=== PATIENT | female | born 1990 | race Caucasian/White ===

== ENCOUNTER 2016-10-30 22:56 | Emergency (ER) | payer OTHER ==
[~2016-10-30] VITALS: Ht 170.2 cm; Wt 78.0 kg
[~2016-10-30 22:56] MED LIST: COLA100C3 PO; FOLI1TAB2 PO; KEPP1000 PO; LAMO10TA PO; MOTR200T44 PO; PERC5TAB6 PO; PREN1TAB11 PO; ZOFR20TA PO
[2016-10-31] MEDS ORDERED: DIPH25CA PO (01:45)
[2016-10-31 02:13] VITALS: BP 117/67
== END 2016-10-31 02:14 | disposition home or self-care (01) ==
LOC: M ED 23:46
DX: G47.00 Insomnia, unspecified (principal); G40.909 Epilepsy, unspecified, not intractable, without status epilepticus; Z79.899 Other long term (current) drug therapy; Z3A.38 38 weeks gestation of pregnancy

== ENCOUNTER 2016-11-08 08:12 | Inpatient (IN) | payer OTHER ==
[~2016-11-08] VITALS: Ht 170.2 cm; Wt 78.0 kg
[2016-11-08] VITALS (33 sets, daily range): BP systolic 90–130; BP diastolic 46–76
[~2016-11-08 08:12] MED LIST changes: +DIPH25CA PO
[2016-11-08] MEDS ORDERED: LR 1,000 ML IV SCH (10:36)
[2016-11-08] MEDS ORDERED: OXYTOCIN DRIP 30 UNITS in APPROPRIATE DILUENT 1 EA IV SCH (10:45)
[2016-11-08 12:11] LABS: MEAN CORPUSCULAR HEMOGLOBIN 32.2 pg (27.0-33.0); MEAN CORPUSCULAR HGB CONC 34.7 g/dl (32.0-36.5); RED CELL DISTRIBUTION WIDTH 12.8 % (11.5-14.5); WHITE BLOOD COUNT 12.6 K/mm3 (4.0-10.0)
[2016-11-08] MEDS ORDERED: FENTANYL 2MCG/ML ROPIVACAINE 0.2% IN 0.9% NACL 200ML IVBAG As Ordered ONE (12:57)
[2016-11-08] MEDS ORDERED: NALOXONE INJ 0.4 MG/1 ML VIAL (J2310) IV PRN (14:00)
[2016-11-08] MEDS ORDERED: diphenhydrAMINE INJ 50MG/ML VIAL (J1200) IV PRN (14:00)
[2016-11-08] MEDS ORDERED: ePHEDrine SULFATE 25 MG/5 ML(5MG/ML) SYRINGE IV PRN (14:00)
[2016-11-08] MEDS ORDERED: EPIDURAL COMMENT XX SCH (14:00)
[2016-11-08] MEDS ORDERED: FENTANYL/ROPIVACAINE/NACL BAG 200 ML EPIDURAL SCH (14:00)
[2016-11-08] MEDS ORDERED: EPIDURAL/PCA KEYS XX PRN (14:00)
[2016-11-08] MEDS ORDERED: REFRIGERATOR IV KEYS XX PRN (14:00)
[2016-11-08] MEDS ORDERED: LACTATED RINGER'S 1000 ML IV PRN (14:00)
[2016-11-08] MEDS ORDERED: levETIRAcetam 250MG TABLET (KEPPRA) PO ONE (19:30)
[2016-11-08] MEDS ORDERED: lamoTRIgine 100MG TAB PO ONE (19:30)
[2016-11-08] MEDS: ONDANSETRON 4MG/2ML VIAL (J2405) IV PRN (22:03)
[2016-11-09] VITALS (14 sets, daily range): BP systolic 89–135; BP diastolic 46–69
[2016-11-09] MEDS ORDERED: lamoTRIgine 100MG TAB PO ONE (06:45)
[2016-11-09] MEDS ORDERED: levETIRAcetam 250MG TABLET (KEPPRA) PO ONE (06:45)
[2016-11-09] MEDS: ONDANSETRON 4MG/2ML VIAL (J2405) IV PRN (08:08)
[2016-11-09] MEDS ORDERED: levETIRAcetam 250MG TABLET (KEPPRA) PO SCH ×2 (09:00→21:00)
[2016-11-09] MEDS ORDERED: lamoTRIgine 100MG TAB PO SCH ×2 (09:00→21:00)
[2016-11-09] MEDS ORDERED: OXYTOCIN DRIP 30 UNITS in APPROPRIATE DILUENT 1 EA IV SCH (12:55)
[2016-11-09] MEDS ORDERED: DIBUCAINE 1% OINTMENT 30GM TOP PRN (13:00)
[2016-11-09] MEDS ORDERED: PROMETHAZINE 25 MG TAB PO PRN (13:00)
[2016-11-09] MEDS ORDERED: METHYLERGONOVINE MALEATE 0.2 MG/ML VIAL (J2210) IM PRN (13:00)
[2016-11-09] MEDS ORDERED: LIDOCAINE 1% MDV INJ 50 ML VIAL INFIL ONE (13:00)
[2016-11-09] MEDS ORDERED: MEASLES,MUMPS,RUBELLA VACCINE INJ (MMR-II) (90707) SC SCH (13:00)
[2016-11-09] MEDS ORDERED: ONDANSETRON 4MG/2ML VIAL (J2405) IV PRN (13:00)
[2016-11-09] MEDS ORDERED: RHOGAM 300 MCG (1500 IU) INJ (J2790) IM SCH (13:00)
[2016-11-09] MEDS: IBUPROFEN 800 MG TAB PO PRN (14:49)
[2016-11-09] MEDS ORDERED: diphenhydrAMINE INJ 50MG/ML VIAL (J1200) IV ONE (15:15)
[2016-11-09] MEDS: ACETAMINOPHEN 500 MG TAB PO PRN (17:01)
[2016-11-09] MEDS: levETIRAcetam 250MG TABLET (KEPPRA) PO SCH (19:22)
[2016-11-09] MEDS: lamoTRIgine 100MG TAB PO SCH (19:22)
[2016-11-09] MEDS: DOCUSATE SODIUM 100 MG CAP PO SCH (21:00)
[2016-11-10] MEDS: IBUPROFEN 800 MG TAB PO PRN (02:07)
[2016-11-10] MEDS: ACETAMINOPHEN 500 MG TAB PO PRN (05:58)
[2016-11-10 06:07] VITALS: BP 110/68
[2016-11-10] MEDS: lamoTRIgine 100MG TAB PO SCH ×2 (07:48→19:23)
[2016-11-10] MEDS: levETIRAcetam 250MG TABLET (KEPPRA) PO SCH ×2 (07:48→19:23)
[2016-11-10] MEDS: PRENATAL VITAMIN TAB PO SCH (08:01)
[2016-11-10] MEDS: DOCUSATE SODIUM 100 MG CAP PO SCH ×2 (08:34→19:54)
--- NOTE | 2016-11-10 13:08 | IPN ---
DATE: 11/09/2016 This patient and requested circumcision of their male . After discussing the risks and benefits of circumcision, the medical and nonmedical indications, penile block and aftercare, risks and benefits they expressed understanding of the risks and benefits, penile block and aftercare, signed and witnessed consent form. We await the clearance by the wire bound box machine operator. cc: *Ciro PINEDA
[2016-11-10 17:35] VITALS: BP 128/73
[2016-11-11 06:35] VITALS: BP 122/70
[2016-11-11] MEDS: lamoTRIgine 100MG TAB PO SCH (06:36)
[2016-11-11] MEDS: levETIRAcetam 250MG TABLET (KEPPRA) PO SCH (06:39)
[2016-11-11] MEDS ORDERED: DIBU1OI TOP (08:09)
[2016-11-11] MEDS ORDERED: IBUP800T23 PO (08:09)
[2016-11-11] MEDS ORDERED: COLA100C3 PO (08:09)
[2016-11-11] MEDS ORDERED: TYLE500T78 PO (08:09)
[2016-11-11] MEDS: DOCUSATE SODIUM 100 MG CAP PO SCH (08:11)
[2016-11-11] MEDS: PRENATAL VITAMIN TAB PO SCH (08:11)
--- NOTE | 2016-11-11 08:44 | DSES ---
DATE OF ADMISSION: 11/08/2016 DATE OF DISCHARGE: 11/11/2016 This lady is a 26-year-old 2, para 1 was admitted with spontaneous rupture of membranes at 39 and 3 weeks of gestation. She received an epidural, pushed for 3 hours, delivered a live male , 9 pounds 0 ounces, 4074 grams. scores of 8 and 9 at one and five minutes, respectively. She had a significant epidural which caused her to have decreased mobility of her lower limbs as well as inability to void. She did have a Woods catheter in for a while. With physical therapy and assistance with a walker, she was able to mobilize. The Woods catheter was removed and she was able to void, passing gas and lower function was returning slowly. She is on two medications for her seizures and her seizure activity, last one was 8 days ago with no change in medication. She did have a second-degree tear which was repaired in the usual fashion. She is presently walking much better and has more mobility control of her lower extremities. On discharge, we discussed phlebitis, cystitis, mastitis, endometritis and cellulitis, diet, exercise, pain management, perineal breast and wound care. Also, management in regards to what PT had taught her to continue on and she will go home with the walker. Her blood pressure on discharge was 122/70, respirations were 18, pulse was 91, temperature 98.2. Her hemoglobin was 13.3, hematocrit 38.4 and platelets are 277. She was given adequate medication to go home with. She will continue to maintain her seizure medications. She will followup in the office in two weeks' time for evaluation of gait and mobility. In the present time she is normocephalic, atraumatic. Neck full range of motion. Pupils equal and reactive to light. Distal pulses are symmetric. No evidence of deep vein thrombosis (DVT), pulmonary embolism or superficial phlebitis. Lungs are clear bilaterally to the bases. No wheezes or rhonchi. No CVA tenderness. Uterus is 2 below. Lochia is moderate. Four quadrant bowel sounds are noted. Her perineum is healing. She has no rashes, lesions or pruritus. No arthralgia or myalgia. She is getting around with her walker. She does have good mobility. She does have strength and does have sensation in her lower limbs. She is voiding well. She has no cough, wheezes, shortness of breath or dyspnea on exertion. No chest pain, not bleeding. Neuro complete. No incontinency, urgency or frequency. No nausea, vomiting, diarrhea or constipation. No diabetic issues. 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 Past medical history is seizure activity on appropriate medications. Past surgical history she has had a salpingectomy. Family history is noncontributory. She does not smoke, drink or abuse drugs. She is and there no domestic violence. In summary, we have a term gestation, delivered a live male with issues of heavy epidural and slow to return lower limb function to be discharged to followup in the next 48 hours.
== END 2016-11-11 11:25 | disposition home or self-care (01) | DRG 775 ==
LOC: M LDO 08:12 → M LDI 09:52 → M OBS 11-09 14:32
PROVIDERS: ADMIT Obstetrics & Gynecology; ATTEND Obstetrics & Gynecology
PROC: 10E0XZZ Delivery of Products of Conception, External Approach (ICD-10-PCS; principal; 2016-11-09)
PROC: 0KQM0ZZ Repair Perineum Muscle, Open Approach (ICD-10-PCS; 2016-11-09)
DX: O41.03X0 Oligohydramnios, third trimester, not applicable or unspecified (principal); Z37.0 Single live birth; Z3A.39 39 weeks gestation of pregnancy; O70.1 Second degree perineal laceration during delivery